=== PATIENT | female | born 1975 | race Caucasian/White ===

== ENCOUNTER 2018-10-05 20:04 | Emergency (ER) | payer MEDICAID ==
[2018-10-05] MEDS: KETOROLAC 30 MG INJ IM (23:40)
== END 2018-10-05 23:56 | disposition home or self-care (01) ==
LOC: E/R 20:04
DX: R10.9 Unspecified abdominal pain (principal); F17.210 Nicotine dependence, cigarettes, uncomplicated
CPT/HCPCS: 96372; 99284-25